=== PATIENT | male | born 1945 | race Caucasian/White ===

== ENCOUNTER → 2023-09-03 06:30 | Day surgery (SDC) | payer MEDICARE, OTHER, SELFPAY ==
[2023-09-03 07:56] LABS: Glucose - Point of Care 176 mg/dl (70-99)
== END ==
LOC: GI 06:30
PROVIDERS: ATTENDING PHYSICIAN Internal Medicine Gastroenterology
DX: Z12.11 Encounter for screening for malignant neoplasm of colon (principal); R19.5 Other fecal abnormalities; K64.8 Other hemorrhoids; K57.30 Diverticulosis of large intestine without perforation or abscess without bleeding; K22.89 Other specified disease of esophagus; K21.9 Gastro-esophageal reflux disease without esophagitis; K63.5 Polyp of colon; K29.50 Unspecified chronic gastritis without bleeding
CPT/HCPCS: 45380; 43239; 88305; 82962; 88342